=== PATIENT | male | born 1955 | race Caucasian/White ===

== ENCOUNTER 2019-03-23 09:29 | Day surgery (SDC) | payer BC, OTHER ==
[~2019-03-23 09:29] MED LIST: Lactated Ringers 1,000 ML IV SCH
[2019-03-23] MEDS ORDERED: fentaNYL 100 MCG/2 ML SDV ONE (11:10)
[2019-03-23] MEDS ORDERED: Propofol 200 MG/20 ML SDV ONE ×2 (11:10→12:04)
--- NOTE | 2019-03-23 13:02 | OR ---
PREOPERATIVE DIAGNOSIS: Family history of colon cancer - brother, personal history of polyps. POSTOPERATIVE DIAGNOSIS: Normal colonoscopic exam. PROCEDURE PROPOSED/PROCEDURE DONE: Total flexible colonoscopy. INDICATION: This is a 63-year-old gentleman who comes in for colonic surveillance due to a family history of colon cancer in a brother. He also has a personal history of polyps. TECHNIQUE: The patient was brought to the endoscopy suite, placed in left lateral decubitus position. He was sedated per [employer] with propofol. The flexible video colonoscope was then passed transanally and under visualization advanced to the cecum. Examination revealed a normal ascending, transverse, descending, sigmoid, and rectal colon. He had some rare diverticular orifices in the sigmoid. Otherwise, examination revealed no signs of any polyps or colitis or other abnormalities and the scope was then withdrawn. The patient tolerated the procedure well. FINAL IMPRESSION: 1. Family history of colon cancer - brother. 2. Personal history of polyps. PLAN: I feel he should continue with colonic surveillance every 5 years hereafter. SCM: 03/23/2019 12:21:26 MODL: 03/23/2019 12:53:41 /[id number]
== END 2019-03-23 13:25 | disposition home or self-care (01) ==
LOC: VM.SDS 09:29
PROVIDERS: ATTEND Surgery
DX: Z12.11 Encounter for screening for malignant neoplasm of colon (principal); I10 Essential (primary) hypertension; K57.30 Diverticulosis of large intestine without perforation or abscess without bleeding; Z86.010 Personal history of colon polyps; Z87.891 Personal history of nicotine dependence; Z80.0 Family history of malignant neoplasm of digestive organs; Z79.899 Other long term (current) drug therapy
CPT/HCPCS: 45378; J2704; J3010; J7120

== ENCOUNTER 2024-05-21 11:24 | Day surgery (SDC) | payer BC, MEDICARE ==
[2024-05-21] MEDS: Lactated Ringers 1,000 ML IV SCH (11:56)
[2024-05-21] MEDS ORDERED: Propofol 200 MG/20 ML SDV ONE ×2 (12:46→14:14)
[2024-05-21] MEDS ORDERED: fentaNYL 100 MCG/2 ML SDV ONE (12:47)
== END 2024-05-21 15:45 | disposition home or self-care (01) ==
LOC: VM.SDS 11:24
PROVIDERS: ATTEND Family Medicine
DX: Z12.11 Encounter for screening for malignant neoplasm of colon (principal); D12.6 Benign neoplasm of colon, unspecified; D12.8 Benign neoplasm of rectum; K63.5 Polyp of colon; K57.30 Diverticulosis of large intestine without perforation or abscess without bleeding; I10 Essential (primary) hypertension; E66.9 Obesity, unspecified; Z68.28 Body mass index [BMI] 28.0-28.9, adult; Z87.891 Personal history of nicotine dependence; Z79.82 Long term (current) use of aspirin; Z79.899 Other long term (current) drug therapy; Z80.0 Family history of malignant neoplasm of digestive organs; Z86.010 Personal history of colon polyps
CPT/HCPCS: 00811; 45380; 45385; J2704; J3010; J7120; 88305